=== PATIENT | female | born 1985 | race Caucasian/White ===

== ENCOUNTER 2020-10-19 23:48 | Emergency (ER) | payer SELFPAY ==
[2020-10-19 23:56] VITALS: BP 138/83; PULSE 92; TEMP 98; BMI 23.3
== END 2020-10-20 00:43 | disposition left against medical advice (07) ==
LOC: JER 23:48
DX: L02.811 Cutaneous abscess of head [any part, except face] (principal)
CPT/HCPCS: 99281-25